=== PATIENT | female | born 1960 | race Caucasian/White ===

== ENCOUNTER → 2022-02-11 | Outpatient (CLI) | payer OTHER ==
[~2022-02-11] MED LIST: ADDERALL 10 MG10 MG PO; HYDROCODON-ACE1 EAC9 PO; MIRAPEX1.5 MG PO
== END ==
LOC: MAMMO 11:38
PROVIDERS: ATTEND Internal Medicine
DX: Z12.31 Encounter for screening mammogram for malignant neoplasm of breast (principal)
CPT/HCPCS: 77067